=== PATIENT | female | born 1990 | race Caucasian/White ===

== ENCOUNTER 2017-04-27 12:28 | Emergency (ER) | payer OTHER ==
[~2017-04-27] VITALS: Ht 160 cm; Wt 68.0 kg
[2017-04-27 12:31] VITALS: BP 126/84
[2017-04-27] MEDS ORDERED: VYVANSE10 MG PO (12:36)
[2017-04-27 13:27] LABS: APPEARANCE,URINE VERY CLOUDY; KETONES,URINE NEGATIVE (NEGATIVE); LEUKOCYTE ESTERASE ,URINE 1+ (NEGATIVE); NITRITE,URINE NEGATIVE (NEGATIVE); PH,URINE 7 (4.5-8.0); PROTEIN,URINE NEGATIVE (NEGATIVE); UROBILINOGEN,URINE NORMAL MG/DL (0.0-1.0)
[2017-04-27 13:46] LABS: BACTERIA,URINE FEW /HPF; RBC,URINE 0-2 /HPF (0 - 2); SQUAMOUS EPITHELIAL CELL,UR MODERATE /LPF (NONE/OCC)
[2017-04-27] MEDS ORDERED: KEFLEX500 MG ORAL (13:57)
[2017-04-27] MEDS ORDERED: Fluconazole 100mg tab ORAL ONE (14:00)
[2017-04-27 14:16] VITALS: BP 124/82
[2017-04-27] MEDS ORDERED: PHENAZOPYRIDIN100 MG ORAL (14:16)
[2017-04-27 14:18] VITALS: BP 124/82
--- NOTE | 2017-04-28 16:08 | Emergency Room Report ---
History of Present Illness General Chief Complaint: Vaginal Source: Patient Present Illness HPI 27-year-old female presents ED for evaluation. Patient states she's been having increased dysuria and itching for the last 4 days. Patient believes she may have a yeast infection. Notes burning urination, 7 out of 10, nonradiating. Denies fevers or chills. Denies vaginal discharge. Denies flank pain nausea or vomiting. No other aggravating factors. Denies any other associated symptoms Allergies: Uncoded Allergies: PEANUTS (Allergy, Severe, 04/27/17) Breathing problem Patient History Past Medical History: none Past Surgical History: none Pertinent Family History: none Social History: Denies: smoking, alcohol use, drug use Last Menstrual Period: 04/10/2017 Now: No Immunizations: UTD Reviewed Nursing Documentation: PMH: Agreed, PSxH: Agreed Nursing Documentation-PMH Past Medical History: No History, Except For Review of Systems All Other Systems: negative except mentioned in HPI Physical Exam Vital Signs Date Time Temp Pulse Resp B/P (MAP) Pulse Ox O2 Delivery O2 Flow Rate FiO2 04/27/17 12:31 98.1 101 16 126/84 98 Room Air Sp02 EP Interpretation: reviewed, normal General Appearance: no apparent distress, alert, GCS 15, non-toxic Head: normocephalic, atraumatic Eyes: bilateral eye normal inspection, bilateral eye PERRL ENT: hearing grossly normal, normal pharynx, no angioedema, normal voice Neck: full range of motion, supple/symm/no masses Respiratory: chest non-tender, lungs clear, normal breath sounds, speaking full sentences Cardiovascular #1: regular rate, rhythm, no edema Cardiovascular #2: 2+ carotid (R), 2+ carotid (L), 2+ radial (R), 2+ radial (L) , 2+ dorsalis pedis (R), 2+ dorsalis pedis (L) Gastrointestinal: normal bowel sounds, non tender, soft, non-distended, no guarding, no rebound Rectal: deferred Genitourinary: normal inspection, no CVA tenderness Musculoskeletal: back normal, gait/station normal, normal range of motion, non- tender Neurologic: alert, oriented x3, responsive, motor strength/tone normal, sensory intact, speech normal Psychiatric: judgement/insight normal, memory normal, mood/affect normal, no suicidal/homicidal ideation Reflexes: 3+ bicep (R), 3+ bicep (L), 3+ tricep (R), 3+ tricep (L), 3+ knee (R) , 3+ knee (L) Skin: normal color, no rash, warm/dry, well hydrated Lymphatic: no adenopathy Medical Decision Making Diagnostic Impression: Primary Impression: Dysuria ER Course Hospital Course 27-year-old female presents to ED complaining of dysuria Differential diagnoses include: UTI, cystitis, pyelonephritis Clinical course Patient placed on stretcher. After initial history and physical I ordered UA, urine . UA shows + bacteria. clinically there is concern for yeast infection. Given Diflucan in ED. We will discharge with antibiotics Diagnosis - dysuria Stable and discharged home with prescriptions for Rx Keflex. Instructed to followup with PMD. Return to ED if symptoms recur or worsen Labs Test 04/27/17 12:40 Urine Color Pale yellow Urine Appearance Very cloudy Urine pH 7 (4.5-8.0) Urine Specific [place] 1.005 (1.005-1.035) Urine Protein Negative (NEGATIVE) Urine Glucose (UA) Negative (NEGATIVE) Urine Ketones Negative (NEGATIVE) Urine Occult Blood Negative (NEGATIVE) Urine Nitrite Negative (NEGATIVE) Urine Bilirubin Negative (NEGATIVE) Urine Urobilinogen Normal MG/DL (0.0-1.0) Urine Leukocyte Esterase 1+ (NEGATIVE) Urine RBC 0-2 /HPF (0 - 2) Urine WBC 2-4 /HPF (0 - 2) Urine Squamous Epithelial Cells Moderate /LPF (NONE/OCC) Urine Bacteria Few /HPF (NONE) Urine HCG, Qualitative Negative Last Vital Signs Date Time Temp Pulse Resp B/P (MAP) Pulse Ox O2 Delivery O2 Flow Rate FiO2 04/27/17 14:18 98.1 76 15 124/82 98 Room Air Status: improved Disposition: HOME, SELF-CARE Condition: Stable Scripts Phenazopyridine Hcl* (PYRIDIUM*) 100 Mg Tablet 100 MG ORAL THREE TIMES A DAY for 3 Days, TAB Prov: LISA MUÑOZ M.D. 04/27/17 Cephalexin* (KEFLEX*) 500 Mg Capsule 500 MG ORAL Q6H, #28 CAP 0 Refills Prov: LISA MUÑOZ M.D. 04/27/17 Patient Instructions: Vaginal Yeast Infection, Adult, Urinary Tract Infection, [id number] LISA MUÑOZ M.D. Apr 28, 2017 16:08
== END 2017-04-27 14:22 | disposition home or self-care (01) ==
LOC: EMR 12:45
DX: R30.0 Dysuria (principal); L29.9 Pruritus, unspecified
CPT/HCPCS: 81003; 81025; 99284

== ENCOUNTER 2017-04-29 19:38 | Emergency (ER) | payer SELFPAY ==
[~2017-04-29] VITALS: Ht 160 cm; Wt 59.4 kg
[~2017-04-29 19:38] MED LIST: KEFLEX500 MG ORAL; PHENAZOPYRIDIN100 MG ORAL; VYVANSE10 MG PO
[2017-04-29 20:00] VITALS: BP 131/88
[2017-04-29 21:03] LABS: BASOPHILS % (AUTO) 1.3 % (0.0-2.0); EOSINOPHILS % (AUTO) 0.7 % (0.0-3.0); LYMPHOCYTES % (AUTO) 25.4 % (20.0-45.0); MEAN CORPUSCULAR HGB CONC 31.9 G/DL (32.0-36.0); MEAN CORPUSCULAR VOLUME 94 FL (80-99); MEAN PLATELET VOLUME 6.3 FL (6.5-10.1); MONOCYTES % (AUTO) 6.5 % (1.0-10.0); NEUTROPHILS % (AUTO) 66.1 % (45.0-75.0); PLATELET COUNT 307 K/UL (150-450); RED BLOOD COUNT 5.98 M/UL (4.20-5.40); RED CELL DISTRIBUTION WIDTH 11.1 % (11.6-14.8); WHITE BLOOD COUNT 6.8 K/UL (4.8-10.8)
[2017-04-29 21:12] LABS: APPEARANCE,URINE CLEAR; KETONES,URINE NEGATIVE (NEGATIVE); LEUKOCYTE ESTERASE ,URINE 1+ (NEGATIVE); NITRITE,URINE POSITIVE (NEGATIVE); PH,URINE 7 (4.5-8.0); PROTEIN,URINE NEGATIVE (NEGATIVE); UROBILINOGEN,URINE 4 MG/DL (0.0-1.0)
[2017-04-29 21:15] LABS: RBC,URINE 0-2 /HPF (0 - 2); WBC,URINE 0-2 /HPF (0 - 2)
[2017-04-29] MEDS ORDERED: Morphine Sulfate 4mg/ml Inj IVP ONE (21:15)
[2017-04-29 21:16] LABS: SQUAMOUS EPITHELIAL CELL,UR MANY /LPF (NONE/OCC)
[2017-04-29 21:17] LABS: ICTOTEST NEGATIVE
[2017-04-29 21:33] LABS: ALANINE AMINOTRANSFERASE 48 U/L (3-33); ALBUMIN/GLOBULIN RATIO 1.9 (1.0-2.7); ANION GAP 15 (5-15); ASPARTATE AMINO TRANSFERASE 25 U/L (5-40); CALCIUM 10.6 mg/dL (8.6-10.2); CARBON DIOXIDE 26 mEQ/L (20-30); CHLORIDE 99 mEQ/L (98-107); CREATININE 0.8 mg/dL (0.5-0.9); GLOMERULAR FILTRATION RATE > 60 mL/min (>60); HEMOLYSIS 1; LIPASE 64 U/L (< 60); POTASSIUM 3.9 mEQ/L (3.4-4.9); SODIUM 140 mEQ/L (135-145); TOTAL PROTEIN 8.9 g/dL (6.6-8.7)
[2017-04-29] MEDS ORDERED: NAPROSYN500 M1 ORAL (21:58)
[2017-04-29] MEDS ORDERED: ZOFRAN4 M3 ORAL (21:58)
[2017-04-29] MEDS ORDERED: NITROFURANTOIN100 M2 ORAL (21:58)
[2017-04-29 22:00] VITALS: BP 124/88
[2017-04-29 22:08] VITALS: BP 124/88
--- NOTE | 2017-04-29 23:04 | Emergency Room Report ---
History of Present Illness General Chief Complaint: Abdominal Pain Source: Patient Present Illness [facility] The patient is a 27 old female presenting for abdominal pain. She was seen in this emergency department 2 days prior and diagnosed with UTI. She was given Keflex and Pyridium and states that pain has increased. She states it is a 10 out of 10 dull ache to the mid lower abdomen and does not radiate. She admits to dysuria and increased urinary frequency. She denies any vaginal discharge. She denies any other symptoms including N, V, F, chills, SOB, CP, rash, back pain Allergies: Uncoded Allergies: PEANUTS (Allergy, Severe, 04/27/17) Breathing problem Patient History Past Medical History: see triage record Pertinent Family History: none Last Menstrual Period: 2 weeks ago Reviewed Nursing Documentation: PMH: Agreed, PSxH: Agreed Review of Systems All Other Systems: negative except mentioned in HPI Physical Exam Vital Signs Date Time Temp Pulse Resp B/P (MAP) Pulse Ox O2 Delivery O2 Flow Rate FiO2 04/29/17 19:45 98.2 115 18 131/88 99 Room Air Sp02 EP Interpretation: reviewed, normal General Appearance: no apparent distress, alert, GCS 15, non-toxic Head: normocephalic, atraumatic Eyes: bilateral eye normal inspection, bilateral eye PERRL ENT: hearing grossly normal, normal pharynx, no angioedema, normal voice Gastrointestinal: normal bowel sounds, soft, non-distended, no guarding, no rebound, tenderness - TTP diffusely but primarily suprapubic Musculoskeletal: back normal, gait/station normal, normal range of motion, non- tender Neurologic: alert, oriented x3, responsive, motor strength/tone normal, sensory intact, speech normal Psychiatric: judgement/insight normal, memory normal, mood/affect normal, no suicidal/homicidal ideation Skin: normal color, no rash, warm/dry, well hydrated Medical Decision Making PA Attestation Dr. Rios is my supervising physician. Patient management was discussed with my supervising physician Diagnostic Impression: Primary Impression: Urinary tract infection Qualified Codes: N39.0 - Urinary tract infection, site not specified ER Course The patient is a 27 yo F presenting for abd pain and dysuria Differential diagnosis considered but not limited to: UTI, BV, yeast infection, pyelonephritis, PID, PE: Vitals WNL. NAD. Abdomen: Normal appearance. Non distended. No ecchymosis. Normal BS. TTP diffusely but primarily suprapubic. No McBurney point tenderness. No guarding. No CVA tenderness Urinalysis is consistent with urinary tract infection. + nitrite No leukocytosis The patient discharged home with a prescription for Macrobid and is given ER precautions. She will stop using keflex. SHe was told she may need to see urologist if these symptoms continue or return since they have been recurrent. Laboratory Tests Test 04/29/17 20:16 04/29/17 20:50 Urine Color Lucretia Urine Appearance Clear Urine pH 7 (4.5-8.0) Urine Specific [place] 1.010 (1.005-1.035) Urine Protein Negative (NEGATIVE) Urine Glucose (UA) Negative (NEGATIVE) Urine Ketones Negative (NEGATIVE) Urine Occult Blood Negative (NEGATIVE) Urine Nitrite Positive (NEGATIVE) H Urine Bilirubin 2+ (NEGATIVE) H Urine Ictotest Negative Urine Urobilinogen 4 MG/DL (0.0-1.0) H Urine Leukocyte Esterase 1+ (NEGATIVE) H Urine RBC 0-2 /HPF (0 - 2) Urine WBC 0-2 /HPF (0 - 2) Urine Squamous Epithelial Cells Many /LPF (NONE/OCC) H Urine Bacteria None /HPF (NONE) Urine HCG, Qualitative Negative White Blood Count 6.8 K/UL (4.8-10.8) Red Blood Count 5.98 M/UL (4.20-5.40) H Hemoglobin 17.9 G/DL (12.0-16.0) H Hematocrit 56.2 % (37.0-47.0) H Mean Corpuscular Volume 94 FL (80-99) Mean Corpuscular Hemoglobin 30.0 PG (27.0-31.0) Mean Corpuscular Hemoglobin Concent 31.9 G/DL (32.0-36.0) L Red Cell Distribution Width 11.1 % (11.6-14.8) L Platelet Count 307 K/UL (150-450) Mean Platelet Volume 6.3 FL (6.5-10.1) L Neutrophils (%) (Auto) 66.1 % (45.0-75.0) Lymphocytes (%) (Auto) 25.4 % (20.0-45.0) Monocytes (%) (Auto) 6.5 % (1.0-10.0) Eosinophils (%) (Auto) 0.7 % (0.0-3.0) Basophils (%) (Auto) 1.3 % (0.0-2.0) Sodium Level 140 mEQ/L (135-145) Potassium Level 3.9 mEQ/L (3.4-4.9) Chloride Level 99 mEQ/L (98-107) Carbon Dioxide Level 26 mEQ/L (20-30) Anion Gap 15 (5-15) Blood Urea Nitrogen 5 mg/dL (7-23) L Creatinine 0.8 mg/dL (0.5-0.9) Estimate Glomerular Filtration Rate > 60 mL/min (>60) Glucose Level 89 mg/dL (74-106) Calcium Level 10.6 mg/dL (8.6-10.2) H Total Bilirubin 0.6 mg/dL (0.0-1.2) Aspartate Amino Transferase (AST) 25 U/L (5-40) Alanine Aminotransferase (ALT) 48 U/L (3-33) H Alkaline Phosphatase 70 U/L (35-104) Total Protein 8.9 g/dL (6.6-8.7) H Albumin 5.9 g/dL (3.5-5.2) H Globulin 3.0 g/dL Albumin/Globulin Ratio 1.9 (1.0-2.7) Lipase 64 U/L (< 60) H Human Chorionic Gonadotropin, Quant < 1 mIU/mL Lab Results Impression CBC: No leukocytosis CMP: unremarkable Lipase minimally elevated UA: Consistent with UTI Last Vital Signs Date Time Temp Pulse Resp B/P (MAP) Pulse Ox O2 Delivery O2 Flow Rate FiO2 04/29/17 22:08 98.2 102 16 124/88 100 Room Air Status: improved Disposition: HOME, SELF-CARE Condition: Improved Scripts Naproxen* (NAPROSYN*) 500 Mg Tablet 500 MG ORAL TWICE A DAY, #30 TAB Prov: TERZIAN,BRANT P.A. 04/29/17 Ondansetron* (ZOFRAN*) 4 Mg Tablet 4 MG ORAL Q6H Y for Nausea & Vomiting, #15 TAB Prov: TERZIAN,BRANT P.A. 04/29/17 Nitrofurantoin Monohyd/M-Cryst* (MACROBID 100 MG*) 100 Mg Capsule 100 MG ORAL EVERY 12 HOURS, #14 CAP Prov: BRANT SMITH 04/29/17 Patient Instructions: Urinary Tract Infection, Abdominal Pain, Adult Additional Instructions: I discussed my findings with the patient. All questions and concerns have been answered. Treatment and medication compliance have been addressed. I advised the patient that they need to follow up with PMD in 3-5 days. Return to ED if symptoms worsen, new symptoms arise, or if needed for any reason. Patient verbalized understanding of discharge instructions. Please stop taking the Keflex and instead take the prescribed medications from today. BRANT SMITH Apr 29, 2017 23:04
== END 2017-04-29 22:08 | disposition home or self-care (01) ==
LOC: EMR 20:20
DX: N39.0 Urinary tract infection, site not specified (principal); Z91.010 Allergy to peanuts
CPT/HCPCS: 36415; 80053; 81003; 81025; 83690; 84702; 85025; 96361; 96374; 96375; 99284; J2270; J2405

== ENCOUNTER 2018-05-19 17:37 | Emergency (ER) | payer OTHER ==
[~2018-05-19] VITALS: Ht 157.5 cm; Wt 56.7 kg
[~2018-05-19 17:37] MED LIST changes: +NAPROSYN500 M1 ORAL; +NITROFURANTOIN100 M2 ORAL; +ZOFRAN4 M3 ORAL
[2018-05-19 17:47] VITALS: BP 131/86
[2018-05-19] MEDS ORDERED: IBUPROFEN600 MG ORAL (18:29)
--- NOTE | 2018-05-19 20:21 | Emergency Room Report ---
History of Present Illness General Chief Complaint: Upper Extremity Injury Source: Patient Present Illness HPI Patient's 28-year-old female presented after injuring her fingernail. Patient had the partially avulsed fingernail just prior to arrival. She reports having up-to-date tetanus vaccine. She denies any other locations of pain. Allergies: Uncoded Allergies: PEANUTS (Allergy, Severe, 04/27/17) Breathing problem Patient History Past Medical History: see triage record Last Menstrual Period: 05/15/18 Reviewed Nursing Documentation: PMH: Agreed; PSxH: Agreed Nursing Documentation-PMH Past Medical History: No History, Except For Hx Neurological Problems: No - ADHD Review of Systems All Other Systems: negative except mentioned in HPI Physical Exam Vital Signs Date Time Temp Pulse Resp B/P (MAP) Pulse Ox O2 Delivery O2 Flow Rate FiO2 05/19/18 17:40 98.2 111 18 131/86 98 Room Air General Appearance: well appearing, no apparent distress, alert, GCS 15 Head: normocephalic, atraumatic ENT: hearing grossly normal, normal voice Neck: full range of motion, supple Respiratory: no respiratory distress, speaking full sentences Cardiovascular #1: normal inspection Musculoskeletal: other - partial nail avulsion Neurologic: normal inspection, alert, normal gait Psychiatric: mood/affect normal Skin: no rash Procedures Laceration/Wound Repair Laceration/Wound Repair : Consent: Verbal Wound Location: upper extremity Wound's Depth, Shape: superficial Wound Length (cm): 0 - .5 Wound Explored: clean Wound Debrided: minimal Wound Repaired With: Dermabond Sterile Dressing Applied?: Yes Splint Applied?: Yes Patient Tolerated: Well Complications: None Medical Decision Making Diagnostic Impression: Primary Impression: Avulsion of nail plate ER Course The patient presented for nail injury. The differential diagnosis included was not limited to complete avulsion, partial avulsion, laceration and among others. The patient was noted to have partial avulsion of the nail. The avulsion was approximated with Dermabond. The patient is placed in a protective splint. The patient is advised to recheck in 2-3 days. Last Vital Signs Date Time Temp Pulse Resp B/P (MAP) Pulse Ox O2 Delivery O2 Flow Rate FiO2 05/19/18 18:34 98.2 100 18 131/86 98 Room Air Status: improved Disposition: HOME, SELF-CARE Condition: Stable Scripts Ibuprofen* (MOTRIN*) 600 Mg Tablet 600 MG ORAL Q8H PRN for For Pain, #30 TAB 0 Refills Prov: Harvey Link MD 05/19/18 Referrals: NOT CHOSEN IPA/,REFERRING (PCP) Patient Instructions: Tissue Adhesive Wound Care Harvey Link MD May 19, 2018 20:21
== END 2018-05-19 18:34 | disposition home or self-care (01) ==
LOC: EMR 18:30
DX: S61.304A Unspecified open wound of right ring finger with damage to nail, initial encounter (principal); X58.XXXA Exposure to other specified factors, initial encounter; Y92.9 Unspecified place or not applicable; F90.9 Attention-deficit hyperactivity disorder, unspecified type
CPT/HCPCS: 99283